=== PATIENT | male | born 1990 | race Caucasian/White ===

== ENCOUNTER 2025-06-04 02:23 | Emergency (ER) | payer SELFPAY ==
[~2025-06-04] VITALS: Ht 185.4 cm; Wt 105.0 kg
[2025-06-04 02:36] VITALS: O2SAT 98
[2025-06-04 03:04] VITALS: BP 138/97; PULSE 73; RESP 18; TEMP 36.7; O2SAT 99
== END 2025-06-04 03:07 | disposition home or self-care (01) ==
LOC: ER 02:23
DX: R09.A9 Foreign body sensation, other site (principal)
CPT/HCPCS: 99282